=== PATIENT | female | born 1960 | race Caucasian/White ===

== ENCOUNTER 2021-01-04 06:30 | Day surgery (SDC) | payer OTHER ==
[2021-01-04] MEDS ORDERED: Sodium Chloride 0.9% 1,000 ML IV SCH (07:00)
[2021-01-04] MEDS ORDERED: Midazolam 1 MG/ML 2 ML SDV ONE (07:05)
[2021-01-04] MEDS ORDERED: fentaNYL 100 MCG/2 ML SDV ONE (07:05)
[2021-01-04] MEDS ORDERED: Propofol 200 MG/20 ML SDV ONE (07:05)
--- NOTE | 2021-01-04 08:57 | OR ---
DATE OF PROCEDURE: 01/04/2021 SURGEON: Doug Stephens MD PROCEDURE: Colonoscopy. FINDINGS: Normal colonoscopy. PREOPERATIVE DIAGNOSIS: Screening colonoscopy. POSTOPERATIVE DIAGNOSIS: Screening colonoscopy. RISKS: Risks, benefits, alternatives, and limitations including, but not limited to, infection, bleeding, perforation, false positives, false negatives were explained to the patient who wished to proceed. PROCEDURE IN DETAIL: The patient was placed in left lateral decubitus position. Digital rectal exam was performed without abnormality. Scope was introduced and advanced atraumatically to the ileocecal valve. A photo was taken. The scope was brought back to the ascending, transverse, descending colon and retroflexed. No evidence of old or new blood. No masses. No polyps. No diverticulosis. No colitis. No abnormalities on retroflexion. Greater than 8 minutes was spent removing the scope. Prep was acceptable, approximately 90% luminal surface could be seen. The patient tolerated the procedure well. Doug Stephens MD /[id number]
== END 2021-01-04 09:05 | disposition home or self-care (01) ==
LOC: JP.SDS 06:30
PROVIDERS: ATTEND Surgery
DX: Z12.11 Encounter for screening for malignant neoplasm of colon (principal)
CPT/HCPCS: 45378; J2250; J2704; J3010; J7030